=== PATIENT | female | born 1975 | race Caucasian/White ===

== ENCOUNTER → 2020-09-02 11:08 | Outpatient (CLI) | payer BC, SELFPAY ==
--- NOTE | 2020-09-02 11:13 | XR_ITS ---
PROCEDURE: XR CHEST 2V CLINICAL HISTORY: ESSENTIAL HYPERTENSION COMPARISON: No exams were available for comparison FINDINGS: The cardiomediastinal silhouette and pulmonary vascularity are within normal limits. The lungs are clear without infiltrates, suspicious nodules, or pleural effusions. Mild upper thoracic curvature convex right IMPRESSION: No acute findings. Dictated by: aT Alonzo MD 09/02/2020 14:21 Ta Alonzo MD in [place] 09/02/2020 14:21
--- NOTE | 2020-09-02 11:32 | ECG_ITS ---
APPROVED REPORT Exam: Resting ECG HR:66 bpm ECG Measurements Heart Rate 66 AXES TN 144 P 30 QRSd 80 QRS 41 QT 384 T 43 QTc 402 Conclusion Normal sinus rhythm Normal ECG Electronically signed by : Jey Billingsley, 09/03/2020 17:01:51
== END ==
PROVIDERS: PCP Nurse Practitioner; Visit Provider Nurse Practitioner
DX: I10 Essential (primary) hypertension (principal)
CPT/HCPCS: 71046; 93005

== ENCOUNTER → 2020-09-29 17:14 | Outpatient (CLI) | payer BC, SELFPAY ==
--- NOTE | 2020-09-29 17:22 | XR_ITS ---
PROCEDURE: XR HIP LT 2-3V W/PELVIS CLINICAL INDICATION: LT HIP PAIN COMPARISON: No exams were available for comparison FINDINGS: No fracture or dislocation is evident. No significant degenerative change. No lytic or blastic change. Unremarkable soft tissues. IMPRESSION: Negative left hip Dictated by: Ta Alonzo MD 09/30/2020 17:30 Ta Alonzo MD in [place] 09/30/2020 17:30
--- NOTE | 2020-09-29 17:22 | XR_ITS ---
PROCEDURE: XR LUMBAR SPINE MIN 4V CLINICAL INDICATION: LT HIP PAIN COMPARISON: No exams were available for comparison FINDINGS: Alignment: Normal alignment. Bony structures: No fracture or dislocation. No lytic or blastic change. Disc spaces: There is slight decrease in the disc space at L4-5 and L5-S1. Small anterior osteophytes are present at L3-L4 and L5. Additional findings: IMPRESSION: Mild degenerative changes Dictated by: Ta Alonzo MD 09/30/2020 17:30 Ta Alonzo MD in [place] 09/30/2020 17:30
== END ==
PROVIDERS: PCP Nurse Practitioner; Visit Provider Nurse Practitioner
DX: M25.552 Pain in left hip (principal)
CPT/HCPCS: 72110; 73502

== ENCOUNTER 2020-11-05 16:30 | Outpatient (RCR) | payer BC, SELFPAY | END 2020-11-05 16:35 | disposition home or self-care (01) | LOC: PT 16:30 | PROVIDERS: PCP Nurse Practitioner; Visit Provider Nurse Practitioner | DX: M25.552 Pain in left hip (principal) | CPT/HCPCS: 97110; 97140; 97163 ==

== ENCOUNTER → 2020-11-18 16:49 | Outpatient (CLI) | payer BC, SELFPAY ==
--- NOTE | 2020-11-18 17:01 | MR_ITS ---
PROCEDURE: MR LUMBAR SPINE WO CON CLINICAL INDICATION: LBP WITH HX OF DDD Low back pain radiating down left leg COMPARISON: No exams were available for comparison TECHNIQUE: Standard multiplanar multiecho sequences are performed without contrast. 3-D MIP and myelographic images are also rendered and reviewed FINDINGS: There is normal alignment. The spinal cord ends at the L1 level. L1-L2: Unremarkable. L2-L3: Unremarkable. L3-L4: Mild facet and ligamentum hypertrophy. L4-5: Mild degenerative disc disease with a small broad-based central and left paracentral disc protrusion causing left lateral recess narrowing with impingement upon the left L5 nerve root. There is mild facet and ligamentum hypertrophy contributing to the lateral recess narrowing. L5-S1: Mild facet and ligamentum hypertrophy IMPRESSION: 1. Mild degenerative disc disease at L4-5 with a small broad-based central and left paracentral disc protrusion causing left lateral recess narrowing with impingement upon the left L5 nerve root. There is mild facet and ligamentum hypertrophy contributing to the lateral recess narrowing 2. Mild facet and ligamentum hypertrophy Dictated by: Ta Alonzo MD 11/19/2020 13:25 Ta Alonzo MD in [place] 11/19/2020 13:25
== END ==
PROVIDERS: PCP Nurse Practitioner; Visit Provider Nurse Practitioner
DX: M51.36 Other intervertebral disc degeneration, lumbar region (principal); M54.42 Lumbago with sciatica, left side
CPT/HCPCS: 72148; 76376

== ENCOUNTER 2021-06-27 13:21 | Emergency (ER) | payer BC, SELFPAY ==
--- NOTE | 2021-06-27 13:24 | XR_ITS ---
PROCEDURE INFORMATION: Exam: XR Left Ankle Exam date and time: 06/27/2021 1:34 PM Age: 45 years old Clinical indication: Pain; Ankle; Left; Additional info: Fall TECHNIQUE: Imaging protocol: XR Left ankle. Views: 3 or more views. COMPARISON: CR XR FOOT LT MIN 3V 06/27/2021 1:32 PM FINDINGS: Bones/joints: Incomplete visualization of nondisplaced fracture of the base of the 5th metatarsal. No evidence of acute ankle injury. Incidental note made of bone islands within the distal tibia. Soft tissues: Normal. IMPRESSION: 1. Incomplete visualization of nondisplaced fracture of the base of the 5th metatarsal. 2. No evidence of acute ankle injury.
--- NOTE | 2021-06-27 13:24 | XR_ITS ---
PROCEDURE INFORMATION: Exam: XR Left Foot Exam date and time: 06/27/2021 1:32 PM Age: 45 years old Clinical indication: Pain; Foot; Left; Additional info: Fall TECHNIQUE: Imaging protocol: XR Left foot. Views: 3 or more views. COMPARISON: No relevant prior studies available. FINDINGS: Bones/joints: There is a nondisplaced fracture at the base of the 5th metatarsal. This is at the junction with the diaphysis. Findings compatible with a Toth fracture 5th metatarsal. Soft tissues: Mild soft tissue swelling demonstrated lateral to the 5th metatarsal. IMPRESSION: Findings compatible with a Toth fracture 5th metatarsal.
[2021-06-27 14:31] VITALS: BP 154/99; PULSE 85; RESP 20; TEMP 36.7; O2SAT 100; BMI 30.1
--- NOTE | 2021-06-27 15:36 | HMH.EDUTC ---
[facility] [place] Clinical Impression: Fracture of foot bone, left, closed Qualifiers: Encounter type: initial encounter Qualified Code(s): S92.902A - Unspecified fracture of left foot, initial encounter for closed fracture Disposition: Home, Self-Care Condition on Discharge: Good Instructions: How to Use Crutches, Foot Fracture, DI for Foot Fracture, How to Use a Walking Boot Additional Instructions: Rest the extremity, apply ice for 15 minutes as tolerated three or four times per day, Elevate the extremity as tolerated while you are resting. Take ibuprofen for pain. I sent in a prescription to your pharmacy. Follow up with Dr. Zimmerman (podiatry). I put in a referral but you need to call her office and schedule an appointment. Please call her office in the morning to get a follow up appointment to be seen there as soon as possible. Follow up with your regular doctor. GO TO THE ER FOR ANY WORSENING SYMPTOMS Prescriptions: Ibuprofen [Ibuprofen 800mg Tablet] 800 mg PO Q8HP PRN #30 tab PRN Reason: Moderate Pain Transmission Status: Pending to [id number] Referrals: Yana Curiel APRN [Primary Care Provider] - Paula Zimmerman DPM [Staff Physician] - Forms: Work/School Release Time of Disposition: 15:42 Medical Decision Making - Medical Records Medical records reviewed: No: I reviewed the patient's medical records. - Solomon Inquiry Pt receiving controlled substance: No Vital Signs: 06/27/21 14:31 Temperature 98.0 F Temperature Source Oral Pulse Rate [Left Radial] 85 Respiratory Rate 20 Blood Pressure [Right Arm] 154/99 H Blood Pressure Mean [Right Arm] 117 02 Sat by Pulse Oximetry 100 - Radiology Data #1 Image(s): Ankle Image Reviewed: Yes I reviewed the patient's radiology image, Yes I have reviewed radiologist's interpretation Preliminary Findings: Abnormal PROCEDURE INFORMATION: Exam: XR Left Foot Exam date and time: 06/27/2021 1:32 PM Age: 45 years old Clinical indication: Pain; Foot; Left; Additional info: Fall TECHNIQUE: Imaging protocol: XR Left foot. Views: 3 or more views. COMPARISON: No relevant prior studies available. FINDINGS: Bones/joints: There is a nondisplaced fracture at the base of the 5th metatarsal. This is at the junction with the diaphysis. Findings compatible with a Toth fracture 5th metatarsal. Soft tissues: Mild soft tissue swelling demonstrated lateral to the 5th metatarsal. IMPRESSION: Findings compatible with a Toth fracture 5th metatarsal. Medical Decision Narrative: I spoke to Dr. Tracy (orthopedics) regarding this injury and x-rays via telephone. [facility] [place] H[place] - General Stated complaint: lt ankle pain Time Seen by Provider: 06/27/21 14:45 Mode of Arrival: Ambulatory Description of Symptoms (Recalled from Triage Doc. by RN): pt states she stepped off the porch last night and hurt the left side of the left foot. foot is swollen and bruised, cool to the touch. pt rates pain a 2/10 at rest. 9/10 when she tries to ambulate on it. she has iced extremity but it has not helped. HEENT Symptoms (Recalled from RN notes): No Resp Symptoms (Recalled from RN notes): No Skin Symptoms (Recalled from RN notes): No MS Symptoms (Recalled from RN notes): Yes Functional Status (Recalled from RN notes): wnl - History of Present Illness Provider Complaint: She states that yesterday she stepped down off her porch and came down wrong and twisted her left foot and ankle. Since then she has had left foot and ankle pain and swelling. She has bruising on the lateral aspect of that foot also. She denies any additional injury. - Related Data Previous Rx's Medication Instructions Recorded Ibuprofen [Ibuprofen 800mg 800 mg PO Q8HP PRN #30 tab 06/27/21 Tablet] Allergies Allergy/AdvReac Type Severity Reaction Status Date / Time Penicillins [PENICILLINS] Aller
[2021-06-27 15:54] VITALS: BP 154/99; PULSE 85; RESP 20; TEMP 36.7
== END 2021-06-27 15:55 | disposition home or self-care (01) ==
PROVIDERS: Emergency Provider Nurse Practitioner Family; PCP Nurse Practitioner
DX: S92.355A Nondisplaced fracture of fifth metatarsal bone, left foot, initial encounter for closed fracture (principal); X50.1XXA Overexertion from prolonged static or awkward postures, initial encounter; Y92.019 Unspecified place in single-family (private) house as the place of occurrence of the external cause
CPT/HCPCS: 29515; 73610; 73630; 99212; G0463

== ENCOUNTER → 2021-07-12 12:51 | Outpatient (CLI) | payer BC, SELFPAY ==
--- NOTE | 2021-07-12 12:56 | XR_ITS ---
FINAL REPORT CLINICAL HISTORY: FRACTURE FOLLOW UP COMPARISON: June 27, 2021 FINDINGS: LEFT FOOT: Three views of the left foot were obtained. There is a comminuted nondisplaced fracture of the proximal 5th metatarsal. There is increased distraction of approximately 2 mm. No significant callus formation is seen. There are small calcaneal spurs. There is no new fracture. There is no soft tissue abnormality. IMPRESSION: Fifth metatarsal fracture with increased distraction. Reviewed, Interpreted and Dictated by Stu Cifuentes III, MD Transcribed by Franco Berkowitz Authenticated by Stu Cifuentes III, MD on 07/12/2021 02:27:[address] [facility]
== END ==
PROVIDERS: PCP Nurse Practitioner; Visit Provider Podiatrist
DX: S92.355A Nondisplaced fracture of fifth metatarsal bone, left foot, initial encounter for closed fracture (principal)
CPT/HCPCS: 73630

== ENCOUNTER → 2021-08-09 09:08 | Outpatient (CLI) | payer BC, SELFPAY ==
--- NOTE | 2021-08-09 09:15 | XR_ITS ---
FINAL REPORT CLINICAL HISTORY: pain, f/u fx. COMPARISON: July 12, 2021 FINDINGS: LEFT FOOT Three views of the left foot were obtained. Again noted is a transverse fracture of the proximal 5th metatarsal. There is no significant callus formation. There is a small calcaneal spur. The visualized joint spaces are normally aligned. The soft tissues are unremarkable. IMPRESSION: Again noted fracture of the proximal 5th metatarsal with no significant callus formation. Reviewed, Interpreted and Dictated by Stu Cifuentes III, MD Transcribed by Caitlin Toth Authenticated and [facility]
== END ==
PROVIDERS: PCP Nurse Practitioner; Visit Provider Podiatrist
DX: M79.672 Pain in left foot (principal); S92.902A Unspecified fracture of left foot, initial encounter for closed fracture; S99.922A Unspecified injury of left foot, initial encounter
CPT/HCPCS: 73630

== ENCOUNTER → 2021-09-20 12:17 | Outpatient (CLI) | payer BC, SELFPAY ==
--- NOTE | 2021-09-20 12:26 | XR_ITS ---
FINAL REPORT CLINICAL HISTORY: fracture evaluation COMPARISON: August 09, 2021 FINDINGS: 3 views of the left foot were obtained. There is a subacute nondisplaced fracture of the proximal aspect of the 5th metatarsal. Bony alignment is stable. There appears to be partial bony fusion. The joint spaces are intact. There are small calcaneal spurs. The soft tissues are unremarkable. IMPRESSION: Subacute proximal 5th metatarsal fracture with stable alignment and partial bony fusion. Reviewed, Interpreted and Dictated by Stu Cifuentes III, MD Transcribed by Franco Berkowitz Authenticated and [facility]
== END ==
PROVIDERS: PCP Nurse Practitioner; Visit Provider Podiatrist
DX: S99.192A Other physeal fracture of left metatarsal, initial encounter for closed fracture (principal); T14.8XXA Other injury of unspecified body region, initial encounter
CPT/HCPCS: 73630

== ENCOUNTER → 2022-03-29 09:30 | Outpatient (CLI) | payer BC, SELFPAY ==
[2022-03-29 18:16] LABS: Adenovirus,PCR Not Detected (NotDetected); Bordetella Pertussis Not Detected (NotDetected); Chlamydophila Pneumoniae, PCR Not Detected (NotDetected); Coronavirus 19, PCR Not Detected (NotDetected); Coronavirus 229E Not Detected (NotDetected); Coronavirus NL63 Not Detected (NotDetected); Coronavirus OC43 Not Detected (NotDetected); Coronovirus HKU1,PCR Not Detected (NotDetected); Human Metapneumovirus Not Detected (NotDetected); Influenza A, PCR Not Detected (NotDetected); Influenza AH1, 2009 Not Detected (NotDetected); Influenza AH1, PCR Not Detected (NotDetected); Influenza AH3,PCR Not Detected (NotDetected); Influenza B, PCR Not Detected (NotDetected); Mycoplasma Pneumoniae, PCR Not Detected (NotDetected); Parainfluenza 1, PCR Not Detected (NotDetected); Parainfluenza 2, PCR Not Detected (NotDetected); Parainfluenza 3, PCR Not Detected (NotDetected); Parainfluenza 4, PCR Not Detected (NotDetected); Respiratory Syncytial Virus Not Detected (NotDetected); Rhinovirus/Enterovirus Not Detected (NotDetected)
== END ==
PROVIDERS: PCP Nurse Practitioner; Visit Provider Nurse Practitioner
DX: J02.9 Acute pharyngitis, unspecified (principal)
CPT/HCPCS: 87581; 87632; 87798; C9803; U0003; U0005